=== PATIENT | male | born 1980 | race Caucasian/White ===

== ENCOUNTER 2017-03-05 22:49 | Emergency (ER) | payer BC ==
--- NOTE | 2017-03-05 22:56 | EDM.PDOC ---
ED HPI GENERAL MEDICAL PROBLEM - General Chief Complaint: Wound Recheck Stated Complaint: OPEN WOUND Time Seen by Provider: 03/05/17 22:56 Source of Information: Reports: Patient - History of Present Illness INITIAL COMMENTS - FREE TEXT/NARRATIVE: HISTORY AND PHYSICAL: History of present illness: [Patient presents with an elliptical incision on his back just over paraspinous muscles on the right, 3.3 cm in length, he was in our surgical department and had a lesion removed, tonight he was bowling when he was done bowling through his bag over-shoulder and opened the lesion in its entirety. Just had his sutures removed. The lesion gapes soluble close it with several sutures as it is bleeding. He'll left follow-up with general surgery again he may have scarring had a week out this may even have to heal by second secondary intent No fever nausea vomiting chills sweats no redness warmth or pus drainage ] Review of systems: As per history of present illness and below otherwise all systems reviewed and negative. Past medical history: As per history of present illness and as reviewed below otherwise noncontributory. Surgical history: As per history of present illness and as reviewed below otherwise noncontributory. Social history: No reported history of drug or alcohol abuse. Family history: As per history of present illness and as reviewed below otherwise noncontributory. Physical exam: HEENT: Atraumatic, normocephalic, pupils reactive, negative for conjunctival pallor or scleral icterus, mucous membranes moist, throat clear, neck supple, nontender, trachea midline. Lungs: Clear to auscultation, breath sounds equal bilaterally, chest nontender. Heart: S1S2, regular, negative for clicks, rubs, or JVD. Abdomen: Soft, nondistended, nontender. Negative for masses or hepatosplenomegaly. Negative for costovertebral tenderness. Pelvis: Stable nontender. Genitourinary: Deferred. Rectal: Deferred. Extremities: Atraumatic, negative for cords or calf pain. Neurovascular unremarkable. Neuro: Awake, alert, oriented. Cranial nerves II through XII unremarkable. Cerebellum unremarkable. Motor and sensory unremarkable throughout. Exam nonfocal. Diagnostics: [] Therapeutics: []Lidocaine 1% Wound cleansed and explored Resutured with good approximation #3 4-0 sutures interrupted Follow-up with general surgery Impression: Wound reclosed Definitive disposition and diagnosis as appropriate pending reevaluation and review of above. no pain Pain Score (Numeric/FACES): 0 - Related Data Allergies Allergy/AdvReac Type Severity Reaction Status Date / Time No Known Allergies Allergy Verified 03/05/17 23:00 Home Meds: Home Meds . [No Known Home Meds] 03/12/14 [History] Social & Family History - Tobacco Use Smoking Status *Q: Former Smoker Years of Tobacco use: 16 - Alcohol Use Days Per Week of Alcohol Use: 7 Number of Drinks Per Day: 3 Total Drinks Per Week: 21 - Recreational Drug Use Recreational Drug Use: Yes Drug Use in Last 12 Months: Yes Recreational Drug Type: Reports: Marijuana/Hashish Recreational Drug Use Frequency: Socially Recreational Drug Last Use: 1 month ago ED ROS GENERAL - Review of Systems Review Of Systems: ROS reveals no pertinent complaints other than HPI. ED EXAM, GENERAL - Physical Exam Exam: See Below Course - Vital Signs Last Recorded V/S: Last Vital Signs Temp 97.4 F 03/05/17 23:00 Pulse 87 03/05/17 23:00 Resp 18 03/05/17 23:00 BP 124/85 03/05/17 23:00 Pulse Ox 98 03/05/17 23:00 - Orders/Labs/Meds Meds: Medications Discontinued Medications Generic Name Dose Route Start Last Admin Trade Name Zakia PRN Reason Stop Dose Admin Lidocaine HCl 20 ml 03/05/17 23:08 Xylocaine 1% INJECT 03/05/17 23:09 ONETIME ONE Departure - Departure Time of Disposition: 23:27 Disposition: Home, Self-Care 01 Condition: Good Clinical Impression: Encounter for wound re-check - Discharge Information Referrals: PCP,None [Primary Care Provider] - Forms: ED Department Discharge Additional Instructions: Follow-up with Dr. Parisi's office on Friday for continued management Return if symptoms persist or worsen Keflex 500 by mouth twice a day prophylactically prescribed The following information is given to patients seen in the emergency department who are being discharged to home. This information is to outline your options for follow-up care. We provide all patients seen in our emergency department with a follow-up referral. The need for follow-up, as well as the timing and circumstances, are variable depending upon the specifics of your emergency department visit. If you don't have a primary care physician on staff, we will provide you with a referral. We always advise you to contact your personal physician following an emergency department visit to inform them of the circumstance of the visit and for follow-up with them and/or the need for any referrals to a consulting specialist. The emergency department will also refer you to a specialist when appropriate. This referral assures that you have the opportunity for follow-up care with a specialist. All of these measure are taken in an effort to provide you with optimal care, which includes your follow-up. Under all circumstances we always encourage you to contact your private physician who remains a resource for coordinating your care. When calling for follow-up care, please make the office aware that this follow-up is from your recent emergency room visit. If for any reason you are refused follow-up, please contact the [facility] emergency department at and asked to speak to the emergency department charge nurse.
[2017-03-05] MEDS ORDERED: Lidocaine 1% 20 ML MDV INJECT ONE (23:08)
== END 2017-03-05 23:46 | disposition home or self-care (01) ==
LOC: MW.ED 22:49
DX: Z48.817 Encounter for surgical aftercare following surgery on the skin and subcutaneous tissue (principal); Z87.891 Personal history of nicotine dependence
CPT/HCPCS: 12001; 99282

== ENCOUNTER 2020-12-14 09:08 | Day surgery (SDC) | payer BC ==
[~2020-12-14 09:08] MED LIST: Sodium Chloride 0.9% 10 ML SDV IV PRN; Sodium Chloride 0.9% 10 ML Syringe FLUSH PRN; Sodium Chloride 0.9% 2.5 ML Syringe FLUSH PRN
--- NOTE | 2020-12-14 09:21 | PCM.PREANE ---
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, cannabis use rarely, h/o drug abuse stopped about 15 yrs ago) - Physical Assessment NPO Status Date: 12/12/20 NPO Status Time: 21:00 Height: 5 ft 9 in Weight: 69.4 kg ASA Class: 2 Mental Status: Alert & Oriented x3 Airway Class: Mallampati = 3 Dentition: Reports: Dentures Thyro-Mental Finger Breadths: 3 Mouth Opening Finger Breadths: 3 ROM/Head Extension: Full Lungs: Clear to Auscultation, Normal Respiratory Effort Cardiovascular: Regular Rate, Regular Rhythm - Allergies Allergies/Adverse Reactions: Allergies Allergy/AdvReac Type Severity Reaction Status Date / Time No Known Allergies Allergy Verified 12/07/20 13:17 - Acknowledgements Anesthesia Type Planned: General Anesthesia Pt an Appropriate Candidate for the Planned Anesthesia: Yes Alternatives and Risks of Anesthesia Discussed w Pt/Guardian: Yes Pt/Guardian Understands and Agrees with Anesthesia Plan: Yes PreAnesthesia Questionnaire HEENT History: Reports: None Cardiovascular History: Reports: None Respiratory History: Reports: None Gastrointestinal History: Reports: Hemorrhoids, Other (See Below) Other Gastrointestinal History: current rectal bleeding Genitourinary History: Reports: None Musculoskeletal History: Reports: None Other Musculoskeletal History: hx of fx wrist, leg and bilateral clavicles Neurological History: Reports: None Psychiatric History: Reports: None Endocrine/Metabolic History: Reports: None Hematologic History: Reports: None Immunologic History: Reports: None Oncologic (Cancer) History: Reports: None Dermatologic History: Reports: None - Infectious Disease History Infectious Disease History: Reports: None - Past Surgical History Head Surgeries/Procedures: Reports: None HEENT Surgical History: Reports: None Cardiovascular Surgical History: Reports: None Respiratory Surgical History: Reports: None GI Surgical History: Reports: None Male Surgical History: Reports: None Endocrine Surgical History: Reports: None Neurological Surgical History: Reports: None Musculoskeletal Surgical History: Reports: None Dermatological Surgical History: Reports: None - SUBSTANCE USE Tobacco Use Status *Q: Current Every Day Tobacco User Tobacco Use Within Last Twelve Months: Cigarettes Days Per Week of Alcohol Use: 7 Recreational Drug Use History: Yes - HOME MEDS Home Medications: Home Meds Psyllium Husk [Metamucil] 1 dose PO ASDIRECTED PRN 12/07/20 [History] Tadalafil [Cialis] 20 mg PO ASDIRECTED PRN 12/07/20 [History] - CURRENT (IN HOUSE) MEDS Current Meds: Current Medications Lactated Ringer's (Ringers, Lactated) 1,000 mls @ 125 mls/hr IV ASDIRECTED GAYLE Sodium Chloride (Sodium Chloride 0.9% 10 Ml Syringe) 10 ml FLUSH ASDIRECTED PRN PRN Reason: Keep Vein Open Sodium Chloride (Sodium Chloride 0.9% 2.5 Ml Syringe) 2.5 ml FLUSH ASDIRECTED PRN PRN Reason: Keep Vein Open Sodium Chloride (Sodium Chloride 0.9% 10 Ml Syringe) 10 ml FLUSH ASDIRECTED PRN PRN Reason: Keep Vein Open Sodium Chloride (Sodium Chloride 0.9% 2.5 Ml Syringe) 2.5 ml FLUSH ASDIRECTED PRN PRN Reason: Keep Vein Open Sodium Chloride (Sodium Chloride 0.9% 10 Ml Sdv) 10 ml IV ASDIRECTED PRN PRN Reason: IV Use
[2020-12-14] MEDS ORDERED: propofoL 50 ML ONE (09:42)
[2020-12-14] MEDS: Lactated Ringers 1,000 ML IV SCH (09:45)
[2020-12-14] MEDS ORDERED: fentaNYL 100 MCG/2 ML SDV ONE (10:12)
--- NOTE | 2020-12-14 10:58 | PCM.POSTAN ---
POST ANESTHESIA ASSESSMENT - MENTAL STATUS Mental Status: Alert, Oriented - VITAL SIGNS Vital Signs: Last Vital Signs Temp 98.4 F 12/14/20 10:51 Pulse 93 12/14/20 10:57 Resp 15 12/14/20 10:57 BP 124/50 L 12/14/20 10:57 Pulse Ox 99 12/14/20 10:57 - RESPIRATORY Respiratory Status: Respiratory Rate WNL, Airway Patent, O2 Saturation Stable - CARDIOVASCULAR CV Status: Pulse Rate WNL, Blood Pressure Stable - GASTROINTESTINAL GI Status: No Symptoms - PAIN Pain Score: 0 - POST OP HYDRATION Hydration Status: Adequate & Stable
--- NOTE | 2020-12-14 11:38 | PCM48HPAN ---
Post Anesthesia Note - EVALUATION WITHIN 48HRS OF ANESTHETIC Vital Signs in Normal Range: Yes Patient Participated in Evaluation: Yes Respiratory Function Stable: Yes Airway Patent: Yes Cardiovascular Function Stable: Yes Hydration Status Stable: Yes Pain Control Satisfactory: Yes Nausea and Vomiting Control Satisfactory: Yes Mental Status Recovered: Yes Vital Signs: Last Vital Signs Temp 97.2 F 12/14/20 11:10 Pulse 72 12/14/20 11:10 Resp 14 12/14/20 11:10 BP 133/87 12/14/20 11:10 Pulse Ox 96 12/14/20 11:10 - COMMENTS/OBSERVATIONS Free Text/Narrative:: Pt doing well post-op. VSS. No apparent anesthetic complications. Dr. Drake Rodriguez
--- NOTE | 2020-12-14 11:45 | PCM.OPNOTE ---
- General Post-Op/Procedure Note Date of Surgery/Procedure: 12/14/20 Operative Procedure(s): Diagnostic colonoscopy Findings: Normal appearing colon, grade IV hemorrhoids Pre Op Diagnosis: Bright red bleeding per rectum Post-Op Diagnosis: Grade IV hemorrhoids Anesthesia Technique: MAC Primary Surgeon: Corry Manriquez Condition: Good Free Text/Narrative:: Intake & Output 12/13/20 12/14/20 12/14/20 22:59 06:59 14:59 Intake Total 1075 Balance 1070
--- NOTE | 2020-12-15 23:55 | OR ---
SURGEON: CORRY MANRIQUEZ MD DATE OF PROCEDURE: 12/14/2020 PREOPERATIVE DIAGNOSIS: Bright red bleeding per rectum. POSTOPERATIVE DIAGNOSIS: Grade 4 hemorrhoids. PROCEDURE PERFORMED: Diagnostic colonoscopy. PRIMARY SURGEON: Corry Manriquez MD ANESTHESIA: MAC. INSTRUMENT USED: Olympus colonoscope. EXTENT OF EXAM: To the cecum. PREPARATION: Good. LIMITATIONS: None. INDICATIONS FOR EXAMINATION: The patient is a 40-year-old male with a history of severe constipation. His bowel habits are now more regular. However, he has started to notice some bright red bleeding per rectum intermittently. On physical exam, he was noted to have hemorrhoids, but to ensure that this is hemorrhoidal bleeding and that there is no other cause, the decision was made to proceed with diagnostic colonoscopy. I explained the procedure, expected perioperative course, and the risks. The patient verbalized understanding and wishes to proceed. PROCEDURE IN DETAIL: The patient was brought to the endoscopy suite and placed in the left lateral decubitus position. A time-out was completed verifying the patient's name, age, date of , allergies, and procedure to be performed. Monitored anesthesia care was induced and continuous oxygen was provided via nasal cannula throughout the procedure. After adequate sedation was achieved, a digital rectal exam was performed. The patient had circumferentially enlarged hemorrhoids. These were prolapsed. No masses were palpated on digital rectal exam. A well-lubricated colonoscope was inserted in the rectum and advanced under direct visualization to the level of the cecum. The cecum was identified by both visual and anatomic landmarks. A photograph was taken of the cecal cap. However, I was unable to retroflex the scope within the cecum due to looping of the scope more proximally. The scope was then fully withdrawn while examining the color, texture, anatomy, and integrity of the mucosa from the cecum to the anal canal. The patient's colon was noted to be normal. There was no pathology identified. The scope was brought into the rectum and retroflexed to allow visualization of the anal canal opening. Again, I could see enlarged internal hemorrhoids. A photograph of this was taken. The scope was then straightened out and fully withdrawn. The cecum to anus time was 16 minutes. The patient tolerated the procedure well, was transferred to the PACU in stable condition. ENDOSCOPIC DIAGNOSIS: Grade 4 hemorrhoids. RECOMMENDATIONS: Follow up in clinic in 2 weeks to discuss hemorrhoidal treatment. MIRIAM JACKSON /[id number]
== END 2020-12-14 11:55 | disposition home or self-care (01) ==
LOC: MW.SDS 09:08
PROVIDERS: ATTEND Surgery
DX: K64.3 Fourth degree hemorrhoids (principal); F17.210 Nicotine dependence, cigarettes, uncomplicated
CPT/HCPCS: 45378; J2704; J3010; J7120